=== PATIENT | male | born 1985 | race African-American/Black ===

== ENCOUNTER 2025-05-30 10:38 | Inpatient (IN) | payer MEDICAID ==
[~2025-05-30] VITALS: Ht 177.8 cm; Wt 92.1 kg
[2025-05-30 10:42] VITALS: O2SAT 100
[2025-05-30 11:10] LABS: BASOPHILS % 0.5 % (0.0-2.0); EOSINOPHILS % 1.4 % (0.0-5.0); HEMATOCRIT. 38.7 % (42.0-52.0); HEMOGLOBIN. 13.1 g/dL (14.0-18.0); LYMPHOCYTES % 9.9 % (20.0-50.0); MEAN PLATELET VOLUME 6.9 fl (7.4-10.4); MONOCYTES % 6.7 % (2.0-8.0); NEUTROPHILS % 81.5 % (40.0-76.0); PLATELET 196 x1000/uL (130-400); RED BLOOD CELL COUNT 4.09 mill/uL (4.7-6.1); RED CELL DISTRIBUTION WIDTH 12.3 % (11.6-14.6)
[2025-05-30] MEDS: LACTATED RINGERS 1,000 ML IV SCH (11:12)
[2025-05-30 11:26] LABS: CREATININE 1.2 mg/dL (0.6-1.3); PROTEIN TOTAL 6.8 g/dL (6.0-8.3); TROPONIN I HIGH SENSITIVITY 4 ng/L (3.0-53); UREA NITROGEN BLOOD 11 mg/dL (9-23)
[2025-05-30 11:27] LABS: ASPARTATE AMINOTRANSFERASE 28 IU/L (<34)
[2025-05-30 11:28] LABS: BILIRUBIN DIRECT 0.3 mg/dL (<=3.0); BILIRUBIN TOTAL 1.1 mg/dL (0.1-1.0)
[2025-05-30 12:00] VITALS: BP 112/70; PULSE 78; RESP 15; TEMP 36.3; O2SAT 96
[2025-05-30 13:00] VITALS: BP 112/70; PULSE 78; RESP 15; TEMP 36.3; TEMP 36.3068; O2SAT 96
[2025-05-30] MEDS ORDERED: AMLO5TAB88 MT (15:39)
[2025-05-30 16:00] VITALS: BP 110/72; PULSE 70; RESP 14; TEMP 36.8; O2SAT 96
[2025-05-30] MEDS ORDERED: LISI-186 MT (16:50)
[2025-05-30] MEDS ORDERED: MAGNESIUM/ALUMINUM HYDROXIDE/SIMETHICONE 30ML UDC PO PRN (18:30)
[2025-05-30] MEDS ORDERED: ZOLPIDEM TARTRATE 5MG TABLET PO PRN (18:30)
[2025-05-30] MEDS ORDERED: CLONIDINE 0.1MG TABLET PO PRN (18:30)
[2025-05-30] MEDS ORDERED: DIPHENHYDRAMINE 50MG/ML VIAL IV PRN (18:30)
[2025-05-30] MEDS ORDERED: ONDANSETRON HCL 4MG/2ML INJ IV PRN (18:30)
[2025-05-30] MEDS ORDERED: ACETAMINOPHEN 325MG TABLET PO PRN ×2 (18:30)
[2025-05-30 18:49] LABS: TROPONIN I HIGH SENSITIVITY 5 ng/L (3.0-53)
[2025-05-30 20:00] VITALS: BP 115/73; PULSE 83; RESP 21; TEMP 36.3; O2SAT 98
[2025-05-30] MEDS: SODIUM CHLORIDE 0.9% 3ML FLUSH IVF SCH (22:00)
[2025-05-31] VITALS: BP 119/78; PULSE 72; RESP 21; TEMP 36.4; O2SAT 99
[2025-05-31 04:00] VITALS: BP 121/82; PULSE 70; RESP 21; TEMP 36.3; O2SAT 98
[2025-05-31 08:00] VITALS: BP 128/87; PULSE 64; RESP 21; TEMP 36.2; O2SAT 98
[2025-05-31 08:31] VITALS: BP 128/87; PULSE 64; RESP 21; TEMP 97.1
== END 2025-05-31 09:12 | disposition home or self-care (01) | DRG 48 ==
LOC: ER 10:38 → 6WST 12:07 → EDBEDREQ 12:16
PROVIDERS: ADMIT Internal Medicine; ATTEND Internal Medicine
DX: G90.89 Other disorders of autonomic nervous system (principal); I10 Essential (primary) hypertension; I95.9 Hypotension, unspecified; Z88.0 Allergy status to penicillin; Z79.899 Other long term (current) drug therapy
CPT/HCPCS: 36415; 71045; 80048; 80076; 84484; 85025; 93005; 99291